=== PATIENT | male | born 1970 | race Caucasian/White ===

== ENCOUNTER 2021-05-08 13:30 | Day surgery (SDC) | payer BC ==
[2021-05-08] MEDS ORDERED: Xylocaine 1% Vial 30 ML PF IJ ONE (13:31)
[2021-05-08] MEDS ORDERED: Decadron 4 MG INJ IV ONE (13:31)
[2021-05-08] MEDS ORDERED: Versed 2 MG/2 ML Injection ONE (14:45)
[2021-05-08] MEDS ORDERED: Lactated Ringers 1,000 ML IV ONE (15:44)
[2021-05-08] MEDS ORDERED: DIPRIVAN 200 MG/20 ML IV ONE (16:27)
--- NOTE | 2021-05-08 22:21 | XRAY ---
Indication: Bilateral piriformis muscle injections. Intraoperative fluoroscopy provided for 33 seconds. 2 digital spot image submitted for interpretation demonstrates posterior needle tip projecting over the expected left and right piriformis muscles. Small amount of contrast injected for needle tip placement. Correlate with intraoperative findings/report.
--- NOTE | 2021-05-09 08:52 | XRAY ---
33 seconds of fluoroscopy was used in surgery for a bilateral piriformis injection.
== END 2021-05-08 16:57 | disposition home or self-care (01) ==
LOC: SDC-PAIN 13:30
PROVIDERS: ATTEND Psychiatry & Neurology Pain Medicine
DX: M79.18 Myalgia, other site (principal); Z79.899 Other long term (current) drug therapy
CPT/HCPCS: 20552; 72202; 77002; J1100; J2001; J2250; J2704; Q9966